=== PATIENT | male | born 1980 | race Caucasian/White ===

== ENCOUNTER → 2020-12-09 11:01 | Outpatient (CLI) | payer OTHER, SELFPAY ==
[2020-12-09 21:06] LABS: SARS-CoV-2 RNA PCR Negative
== END ==
PROVIDERS: PCP Family Medicine; Visit Provider Family Medicine
DX: Z20.822 Contact with and (suspected) exposure to COVID-19 (principal); R09.81 Nasal congestion
CPT/HCPCS: C9803; U0003; U0005

== ENCOUNTER 2024-07-21 15:44 | Outpatient (CLI) | payer OTHER, SELFPAY ==
--- NOTE | ~2024-07-21 | CT_ITS ---
EXAMINATION: CT abdomen pelvis wo con DATE: 07/21/2024 15:58 INDICATION: Acute prostatitis TECHNIQUE: Computed tomography (CT) of the abdomen and pelvis was performed without intravenous contr ast. Automated exposure control and iterative reconstruction technique were employed. The dose-length product was 552.08 mGy-cm. COMPARISON: None FINDINGS: Minimal atelectasis in the bilateral posterior basilar lower lobes. Heart size is normal. No pericard ial or pleural effusion. Liver, gallbladder, spleen, pancreas, bilateral adrenal glands and kidneys a re normal. Bowels including the appendix are normal. Bladder is normal. Splenomegaly measuring 5.1 x 3.9 cm. No free intraperitoneal gas or fluid. No pathologically enlarged abdominal or pelvic lymphade nopathy. Moderate lower thoracic and mild lumbosacral spondylosis with minimal intervening lumbar spo ndylosis. IMPRESSION: 1. Prostatomegaly. Reviewed, dictated and finalized at location B. IMPRESSION: 1. Prostatomegaly.
== END 2024-07-21 15:45 | disposition home or self-care (01) ==
PROVIDERS: PCP Family Medicine; Visit Provider Urology
DX: N41.0 Acute prostatitis (principal)
CPT/HCPCS: 74176

== ENCOUNTER 2024-09-19 10:39 | Outpatient (CLI) | payer OTHER, SELFPAY ==
--- NOTE | ~2024-09-19 | MR_ITS ---
EXAMINATION: MR brain/brain stem wo/w con DATE: 09/19/2024 11:30 INDICATION: Hemangioma of other sites. TECHNIQUE: Magnetic resonance imaging (MRI) of the brain and brainstem was performed without and with 17 mL MultiHance intravenous contrast. COMPARISON: Head CT 03/04/2012 FINDINGS: There is no intracranial hemorrhage, acute infarction, or abnormal intracranial mass lesion . The ventricles are normal in size. There is mild mucosal thickening in the ethmoid sinuses. There i s instrumentation of anterior wall of right maxillary sinus. The orbits are normal. The mastoid air c ells are normal. IMPRESSION: 1. Normal brain. Reviewed, dictated and finalized at location A. 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 Normal brain.
== END 2024-09-19 10:40 | disposition home or self-care (01) ==
LOC: MICIMG 10:43
PROVIDERS: Visit Provider Family Medicine
DX: D18.09 Hemangioma of other sites (principal)
CPT/HCPCS: 70553; A9577